=== PATIENT | male | born 1970 | race Caucasian/White ===

== ENCOUNTER 2020-05-30 14:57 | Outpatient (REF) | payer BC, SELFPAY ==
--- NOTE | ~2020-05-30 | XR_ITS ---
EXAMINATION: XR LUMBOSACRAL SPINE CLINICAL INFORMATION: Muscle spasm back COMPARISON: None TECHNIQUE: Three views of the lumbosacral spine. FINDINGS: There are 5 nonrib bearing lumbar vertebra. The bony texture and alignment is satisfactory. There is mild disc space narrowing L5-S1 level. Pedicles intact. No destructive bony lesion. Sacroiliac joints unremarkable. Psoas margins intact. No dilated loops of large or small bowel seen. There is mild facet arthropathy left L5-S1 facet joint. XR/XR lumbar spine 2-3V IMPRESSION: No significant bony abnormality of the lumbosacral spine identified.
== END 2020-05-30 14:58 | disposition home or self-care (01) ==
LOC: HO.HMGCX 14:57
PROVIDERS: PCP Internal Medicine; Visit Provider Nurse Practitioner Family
DX: M62.830 Muscle spasm of back (principal)
CPT/HCPCS: 72100

== ENCOUNTER 2020-06-29 13:00 | Outpatient (RCR) | payer BC, SELFPAY ==
--- NOTE | 2020-06-08 13:51 | MHC.PT.EP ---
[facility] [place] [facility] [place] Office [place] Office [address] [phone] F: [phone] F: [phone] F: [phone] F: [phone] Physical Therapy Plan of Care Date of Evaluation: Date of Surgery: n/a Diagnosis: low back spasm/pain Assessment: Patient is a 49 year old R handed male who presents with s/s consistent with back spasms/pain. He works with daily job demands including standing/sitting at computer. Patient past medical history includes HTN. Current impairments include pain, flexibility, ROM, strength, independence, activity tolerance and functional mobility. Functional limitations include decreased ability to walk, stand, transfer, negotiate stairs, and perform weight bearing activities.. Patient is motivated with good rehab potential. Skilled PT will address impairments and functional limitations in order to achieve goals. Frequency and Duration: The patient will be seen 2x/week for 5 weeks Short Term Goals: I with HEP - 2 weeks Centralized s/s - 2 weeks 90/90 lacking 40 or less - 3 weeks Social [employer] Senior Associate Goals: 90/90 lacking 20 or less - 5 weeks demo proper squat/lift technique with no cues - 5 weeks Oswestry 10% or less - 5 weeks Resume ex classes - 5 weeks Treatment Plan: Modalities to reduce pain, spasms and effusion. Manual therapy to restore motion and function. Therapeutic exercise to improve strength and flexibility. Neuromuscular re-education for posture and balance. Therapeutic activities to return to functional activities of daily living. Electronically signed by: Arsenio Emmanuel, PT Please sign and return to therapist. Thank you for your referral.
--- NOTE | 2020-07-07 13:13 | MHC.PT.DC ---
[facility] [place] Office [place] Office [place] Office [address] [facility] [phone] F: [phone] F: [phone] F: [phone] F: [phone] Physical Therapy Discharge Report Diagnosis: low back spasm/pain Date of Surgery: n/a Date of Evaluation: 06/08/20 Date of Discharge: 07/01/20 Treatments to Date: 4 Cancellations to Date: 0 No Shows to Date: 0 Discharge Status: Achieved Goals Improved Function Independent with HEP Discharge Summary: Pt progressed well over the course of skilled PT making progress on impairments and functional limitations resulting in an improved quality of life. Pt is I with HEP and appropriate to d/c to HEP at this time. Electronically signed by: Arsenio Emmanuel, PT Please sign and return to therapist. Thank you for your referral.
== END 2020-07-09 10:46 | disposition home or self-care (01) ==
LOC: HO.PTCHIC 13:00
PROVIDERS: PCP Internal Medicine; Visit Provider Nurse Practitioner Family
DX: M62.830 Muscle spasm of back (principal)
CPT/HCPCS: 97110; 97112; 97140; 97161